=== PATIENT | male | born 1995 | race Caucasian/White ===

== ENCOUNTER 2021-01-01 07:46 | Emergency (ER) | payer MEDICAID ==
[~2021-01-01] VITALS: Ht 188 cm; Wt 104.5 kg
[2021-01-01] MEDS ORDERED: BACITRACIN 0.9 GM PACKET OINTMENT TP ONE (08:15)
[2021-01-01 10:01] VITALS: BP 130/77
== END 2021-01-01 09:45 | disposition home or self-care (01) ==
LOC: EMS 07:51
DX: S70.212A Abrasion, left hip, initial encounter (principal); V03.99XA Pedestrian with other conveyance injured in collision with car, pick-up truck or van, unspecified whether traffic or nontraffic accident, initial encounter; Y93.89 Activity, other specified; Y92.488 Other paved roadways as the place of occurrence of the external cause; Y99.8 Other external cause status
CPT/HCPCS: 70450; 72125; 73503; 99285

== ENCOUNTER 2021-08-06 01:41 | Emergency (ER) | payer MEDICAID, OTHER ==
[~2021-08-06] VITALS: Ht 182.9 cm; Wt 77.3 kg
[2021-08-06 03:10] VITALS: BP 135/90
== END 2021-08-06 03:11 | disposition home or self-care (01) ==
LOC: EMS 01:42
DX: S30.0XXA Contusion of lower back and pelvis, initial encounter (principal); V06.00XA Pedestrian on foot injured in collision with other nonmotor vehicle in nontraffic accident, initial encounter; Y93.89 Activity, other specified; Y92.89 Other specified places as the place of occurrence of the external cause; Y99.0 Civilian activity done for income or pay
CPT/HCPCS: 99282; Z7502

== ENCOUNTER 2023-11-27 05:46 | Emergency (ER) | payer BC, MEDICAID ==
[~2023-11-27] VITALS: Ht 185.4 cm; Wt 109.1 kg
[2023-11-27 05:50] VITALS: TEMP 98.1
[2023-11-27] MEDS: ACETAMINOPHEN 500 MG TABLET PO ONE (06:30)
[2023-11-27 06:34] LABS: BASOPHILS % (AUTO) 0.5 % (0.0-2.0); EOSINOPHILS % (AUTO) 2.5 % (1.0-6.0); HEMATOCRIT 43.7 % (41-53); HEMOGLOBIN 15.3 g/dL (13.5-17.5); LYMPHOCYTES % (AUTO) 32.5 % (22.0-44.0); MEAN CORPUSCULAR HEMOGLOBIN 32.5 pg (26.0-34.0); MEAN CORPUSCULAR HGB CONC 34.9 G/dL (31.0-37.0); MEAN CORPUSCULAR VOLUME 93 fL (80-100); MONOCYTES # (AUTO) 0.7 K/uL (0.1-1.0); MONOCYTES % (AUTO) 7.4 % (2.0-9.0); NEUTROPHILS # (AUTO) 5.2 K/uL (1.8-7.7); NEUTROPHILS % (AUTO) 57.1 % (40.0-70.0); PLATELET COUNT (AUTO) 246 K/uL (150-450); RED BLOOD CELL COUNT(AUTO) 4.69 MIL/uL (4.50-5.90); RED CELL DISTRIBUTION WIDTH 12.5 % (11.5-14.5); WHITE BLOOD COUNT (AUTO) 9.1 K/uL (4.5-11.0)
[2023-11-27 06:43] LABS: ANION GAP 7 mmol/L (8-16); CARBON DIOXIDE 27 mmol/L (22-29); CHLORIDE 103 mmol/L (98-107); CREATININE 1.02 mg/dL (0.60-1.30); GLOMERULAR FILTR. RATE CALC > 60 mL/min (>60); GLUCOSE,RANDOM 125 mg/dL (70-110); POTASSIUM 3.4 mmol/L (3.5-5.1); SODIUM SERUM 137 mmol/L (136-145); UREA NITROGEN, BLOOD 15 mg/dL (7-18)
[2023-11-27 06:49] LABS: ALANINE AMINOTRANSFERASE 123 U/L (12-78); ALBUMIN 3.7 g/dL (3.4-5.0); ALKALINE PHOSPHATASE 82 U/L (46-116); ASPARTATE AMINOTRANSFERASE 43 U/L (15-37); BILIRUBIN,TOTAL 0.5 mg/dL (0.1-1.0); CREATINE KINASE, TOTAL ONLY 49 U/L (39-308); TOTAL PROTEIN, SERUM 7.9 g/dL (6.4-8.2)
[2023-11-27 06:52] LABS: B-TYPE NATRIURETIC PEPTIDE < 5 pg/mL (0-100); TROPONIN I-HIGH SENSITIVITY Less Than 4 ng/L (<76)
[2023-11-27 08:15] VITALS: BP 132/70; PULSE 77; RESP 16
== END 2023-11-27 08:16 | disposition home or self-care (01) ==
LOC: EMS 05:47
DX: R07.89 Other chest pain (principal); F17.210 Nicotine dependence, cigarettes, uncomplicated
CPT/HCPCS: 71045; 80053; 82550; 83880; 84484; 85025; 85379; 93005; 99285; 36415-L1; 36415-TC